=== PATIENT | male | born 1980 | race African-American/Black ===

== ENCOUNTER 2023-03-03 11:36 | Outpatient (REF) | payer MEDICAID, SELFPAY ==
[2023-03-03 13:40] LABS: Basophils Percent Auto 0.7 % (0-2); Eosinophils Absolute Auto 0.1 X10*3/uL (0.0-0.4); Eosinophils Percent Auto 1.5 % (0-4); Hematocrit 45.6 % (42.0-52.0); Hemoglobin 15.8 g/dl (14.0-18.0); Imm Gran Abs Auto 0.02 X10*3/uL (0.00-0.03); Imm Gran Pct Auto 0.3 % (0.0-0.4); Lymphocytes Absolute Auto 3.9 X10*3/uL (1.2-4.9); Lymphocytes Percent Auto 62.9 % (20-40); MANUAL DIFF FLAG SCAN; Mean Corpuscular HGB Conc 34.6 g/dl (31.0-36.0); Mean Corpuscular Hemoglobin 33.3 pg (27.0-33.0); Mean Corpuscular Volume 96.2 fL (80.0-98.0); Mean Platelet Volume 11.6 fL (9.4-12.4); Monocytes Absolute Auto 0.5 X10*3/uL (0.1-1.2); Monocytes Percent Auto 8.6 % (2-11); Neutrophils Absolute Auto 1.6 x10*3/uL (2.0-8.3); Platelet Count 256 X10*3/uL (160-400); Red Blood Count 4.74 X10*6/uL (4.60-5.80); Red Cell Distribution Width 13.1 % (11.0-16.0); SCAN SMEAR FLAG 1; White Blood Count 6.1 X10*3/uL (4.8-10.8)
[2023-03-03 14:06] LABS: SLIDE REVIEW VERIFIED
[2023-03-03 14:16] LABS: Alanine Aminotransferase 45 U/L (0-40); Albumin Level 4.3 g/dL (3.5-5.0); Alkaline Phosphatase 83 U/L (39-117); Anion Gap 13 (12-20); Aspartate Amino Transferase 49 U/L (5-37); Bilirubin Total 0.4 mg/dL (0.0-1.0); Blood Urea Nitrogen 7 mg/dL (9-16); Calcium 9.8 mg/dL (8.4-10.2); Carbon Dioxide 24 mmol/L (22-29); Chloride 107 mmol/L (96-108); Estimated Glomerular Filt Rate > 60; Glucose Random 98 mg/dL (60-115); Sodium 140 mmol/L (135-145); Total Protein 8.9 g/dL (6.5-8.0)
[2023-03-05 07:54] LABS: HIV RNA PCR Qn Copies 217 copies/mL (NOT DETECTED); HIV RNA PCR Qn Log Copies 2.34 (NOT DETECTED)
[2023-03-05 11:38] LABS: Absolute CD3 Count 2986 cells/uL (840-3060); Absolute CD4 Count 1044 cells/uL (490-1740); Absolute CD8 Count 1633 cells/uL (180-1170); Absolute Lymphocytes 3736 cells/uL (850-3900); CD4 CD8 Ratio 0.64 (0.86-5.00); Percent CD3 Cells 80 % (57-85); Percent CD4 Cells 28 % (30-61); Percent CD8 Cells 44 % (12-42)
== END 2023-03-03 11:37 | disposition home or self-care (01) ==
LOC: HO.HHCL 11:36
PROVIDERS: Visit Provider Student in an Organized Health Care Education/Training Program
DX: B20 Human immunodeficiency virus [HIV] disease (principal)
CPT/HCPCS: 36415; 80053; 85025; 86359; 86360; 87536

== ENCOUNTER 2023-08-18 12:26 | Outpatient (REF) | payer MEDICAID, SELFPAY ==
[2023-08-20 11:13] LABS: HIV RNA PCR Qn Copies <20 DETECTED copies/mL (NOT DETECTED); HIV RNA PCR Qn Log Copies <1.30 DETECTED (NOT DETECTED)
== END 2023-08-18 12:27 | disposition home or self-care (01) ==
LOC: HO.HHCL 12:26
PROVIDERS: Visit Provider Student in an Organized Health Care Education/Training Program
DX: B20 Human immunodeficiency virus [HIV] disease (principal)
CPT/HCPCS: 36415; 87536; 87900; 87901; 87906

== ENCOUNTER 2023-10-19 14:59 | Outpatient (REF) | payer MEDICAID, SELFPAY | END 2023-10-19 15:00 | disposition home or self-care (01) | LOC: HO.HHCLNP 14:59 | PROVIDERS: Visit Provider Student in an Organized Health Care Education/Training Program | DX: B20 Human immunodeficiency virus [HIV] disease (principal) | CPT/HCPCS: 88112 ==

== ENCOUNTER 2024-09-29 15:39 | Outpatient (REF) | payer MEDICAID, SELFPAY ==
[2024-09-29 16:16] LABS: Basophils Percent Auto 0.4 % (0-2); Eosinophils Percent Auto 0.4 % (0-4); Hematocrit 43.9 % (42.0-52.0); Hemoglobin 16.1 g/dl (14.0-18.0); Imm Gran Abs Auto 0.01 X10*3/uL (0.00-0.03); Imm Gran Pct Auto 0.2 % (0.0-0.4); Lymphocytes Absolute Auto 3.7 X10*3/uL (1.2-4.9); Lymphocytes Percent Auto 69.8 % (20-40); MANUAL DIFF FLAG SCAN; Mean Corpuscular HGB Conc 36.7 g/dl (31.0-36.0); Mean Corpuscular Hemoglobin 34.6 pg (27.0-33.0); Mean Corpuscular Volume 94.4 fL (80.0-98.0); Mean Platelet Volume 10.5 fL (9.4-12.4); Monocytes Absolute Auto 0.4 X10*3/uL (0.1-1.2); Monocytes Percent Auto 8.3 % (2-11); Neutrophils Absolute Auto 1.1 x10*3/uL (2.0-8.3); Neutrophils Percent Auto 20.9 % (45-73); Platelet Count 242 X10*3/uL (160-400); Red Blood Count 4.65 X10*6/uL (4.60-5.80); Red Cell Distribution Width 12.1 % (11.0-16.0); SCAN SMEAR FLAG 1; White Blood Count 5.3 X10*3/uL (4.8-10.8)
[2024-09-29 17:41] LABS: SLIDE REVIEW VERIFIED
--- OUTSIDE RECORDS SUMMARY | 2024-09-29 18:02 | XMS_ITS | Clinical Summary ---
Author Organization [facility] Address [address] [place] [address] Care Team Providers Care Tombstone Polisher Name Role Phone Unavailable Primary Care Provider Unavailabl e Source Comments PLEASE NOTE, if this patient is a minor, it may be UNLAWFUL to discuss sensitive information that is contained in these records (such as FAMILY PLANNING, MENTAL HEALTH or SUBSTANCE ABUSE) with the minor patient's parent or other person without the patient's specific authorization.[facility] Immunizations Immunization Administration Dates Next Due Moderna COVID-19 Vaccine, re d cap blue label, 12+ Primary Series 01/03/2021,12/06/2020 Social History Tobacco Use Types Packs/Day Years Used Date Smoking Tobacco: Never Assessed Social Connections Answer Date Recorded Social Connections and Isolation 0 12/06/2020 Financial Resource Strain Answer Date R ecorded Financial Resource Strain 0 2020 Stress Answer Date Recorded Stress 0 12/06/2020 Physical Activity Answer Date Recorded Physical Activity 0 12/06/2020 Food Insecurity Answer Date Recorded Food 0 12/06/2020 Transportation Needs Answer Date Record ed Transportation 0 12/06/2020 Housing Stability Answer Date Recorded Housing 0 12/06/2020 Safety and Environment Answer Date Kolby rded Safety 0 12/06/2020 Utilities Answer Date Recorded Utilities 0 12/06/2020 Employment Answer Date Recorded Employment 0 12/06/2020 Sex and Gender Information Value Date Recorded Sex Assigned at Not on file Legal Sex Male 7:58 AM PDT Gender Identity Not on file Sexual Orientation Not on file Plan of Treatment Health Maintenance Due Date Last Done Comments Anxiety Screening 1982 Diabetes Screening 1982 Hepatitis C Screening 1982 Lipid Screening 1982 Tobacco Screening 1982 HIV Screening 1997 Hypertension Screening (#1) 01/17/2000 Imm-Hepatitis B (1 of 3 - 19 + 3-dose series) 2001 Imm-DTaP/Tdap/Td (5 - Td or Tdap) 07/27/2023 07/26/2013, 1982, 1982, Additional history exists [id number] ( season) 2023 021, 12/06/2020 Alcohol and Drug Screen 04/27/2024 Depression Annual Screen 04/27/2024 Imm-Influenza (Season Ended) 2024
[2024-09-29 18:03] LABS: Alanine Aminotransferase 100 U/L (0-40); Albumin Level 4.8 g/dL (3.5-5.0); Alkaline Phosphatase 102 U/L (39-117); Anion Gap 18 (12-20); Aspartate Amino Transferase 118 U/L (5-37); Bilirubin Total 0.6 mg/dL (0.0-1.0); Blood Urea Nitrogen 12 mg/dL (9-16); Calcium 9.8 mg/dL (8.4-10.2); Carbon Dioxide 23 mmol/L (22-29); Chloride 105 mmol/L (96-108); Cholesterol 273 mg/dL (<200); Estimated Glomerular Filt Rate > 60; Glucose Random 99 mg/dL (60-115); HDL Cholesterol 42 mg/dL (>40); Potassium 3.8 mmol/L (3.3-5.1); Sodium 142 mmol/L (135-145); Total Protein 8.8 g/dL (6.5-8.0); Triglycerides 1404 mg/dL (<150)
[2024-09-29 18:13] LABS: Reflex LDLD? Yes
[2024-09-30 05:45] LABS: HBS Num1 0.18 mIU/mL (0-7.99); HBc Num1 0.06 S/CO (0.00-0.79); HBsAGNum1 0.41 S/CO (0.00-0.99); Hepatitis B Core Antibody Nonreactive (Nonreactive); Hepatitis B Surface Antigen Negative (Negative); ~HepC Num1 0.17 S/CO (0.00-0.79); ~Hepatitis B Surface Antibody NONREACTIVE (Nonreactive); ~Hepatitis C Antibody Nonreactive (Nonreactive)
[2024-09-30 06:37] LABS: HIV AB/AG Reactive (Nonreactive)
[2024-09-30 15:32] LABS: Hepatitis B Viral DNA Qn - cp NOT DETECTED Log IU/mL (NOT DETECTED); Hepatitis B Viral DNA Qn-IU/mL NOT DETECTED (NOT DETECTED)
[2024-10-02 09:12] LABS: TS Negative Control Passed; TS Panel A 0; TS Panel B 0; TS Positive Control Passed; TSpotTB Negative (Negative)
[2024-10-03 10:08] LABS: RPR Rapid Plasma Reagin NON-REACTIVE (NON-REACTIVE)
[2024-10-03 11:04] LABS: Absolute CD3 Count 2706 cells/uL (840-3060); Absolute CD4 Count 1134 cells/uL (490-1740); Absolute CD8 Count 1243 cells/uL (180-1170); Absolute Lymphocytes 3309 cells/uL (850-3900); CD4 CD8 Ratio 0.91 (0.86-5.00); Percent CD3 Cells 82 % (57-85); Percent CD4 Cells 34 % (30-61); Percent CD8 Cells 38 % (12-42)
[2024-10-03 15:44] LABS: HIV 1 Antibody POSITIVE (NEGATIVE); HIV 2 Antibody NEGATIVE (NEGATIVE)
[2024-10-04 01:08] LABS: LDL Cholesterol Direct 73 mg/dL (<100)
[2024-10-06 16:48] LABS: FIB-ALT 67 U/L (9-46); FIB-Alpha-2-Macroglobulin 205 mg/dL (106-279); FIB-Apolipoprotein A1 209 mg/dL (94-176); FIB-GGT 519 U/L (3-95); FIB-Haptoglobin 208 mg/dL (43-212); FIB-Total Bilirubin 0.5 mg/dL (0.2-1.2); Liver Fibrosis Score 0.24; Liver Fibrosis Stage F0-F1; Nec Inflam Act Grade A1-A2; Nec Inflam Act Score 0.38
== END 2024-09-29 15:40 | disposition home or self-care (01) ==
LOC: HO.HHCL 15:39
PROVIDERS: Visit Provider Student in an Organized Health Care Education/Training Program
DX: Z21 Asymptomatic human immunodeficiency virus [HIV] infection status (principal)
CPT/HCPCS: 36415; 80053; 80061; 81596; 83721; 85025; 86359; 86360; 86481; 86592; 86701; 86702; 86704; 86706; 86803; 87340; 87389; 87517

== ENCOUNTER 2025-01-11 12:17 | Outpatient (REF) | payer MEDICAID, SELFPAY ==
--- NOTE | ~2025-01-11 | XR_ITS ---
EXAMINATION: XR FOOT, LEFT CLINICAL INFORMATION: 3 DAYS OF PAIN OVER 3/4 METATARSAL AFTER RUNNING COMPARISON: None available. TECHNIQUE: AP, lateral, and oblique views of the left foot. FINDINGS: No abnormal lucency, sclerosis, or periosteal new bone formation is visible. Small teardrop-shaped ossification is present in the soft tissues medial to the first MTP joint. There are small MTP joint marginal osteophytes. 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 No visible fracture or stress response. Electronically signed by: Alpesh Sy MD 01/11/2025 12:35 PM EDT
--- OUTSIDE RECORDS SUMMARY | 2025-01-11 15:45 | XMS_ITS | Clinical Summary ---
Author Organization [facility] Address [address] [phone] Phone Care Team Providers Care Academic Affairs Coordinator Name Role Phone Pcp, Not Required Primary Care Provider Unavaila ble Social History Tobacco Use Types Packs/Day Years Used Date Smoking Tobacco: Never Assessed Education Answer Date Recorded Are you interested in more education? Not on ami e 08/22/2022 Are you concerned about learning? Not on file 08/22/2022 No 08/22/2022 No 08/22/2022 Digital Access Answer Date Recorded No 09/23/2022 No 09/23/2022 Reliable internet access at home? Not on file 09/23/2022 Device with a working camera? Not on file Sex and Gender Information Value Date Recorded Sex Assigned at Not on file Legal Sex Male 3:28 PM EDT Gender Identity Not on file Sexual Orientation Not on file Plan of Treatment Health Maintenance Due Date Last Done Comments LIPID PANEL 1982 DEPRESSION SCREENING 1994 SMOKING Hx and SMOKELESS TOBACCO SCREENING 1995 HEPATITIS C SCREENING 01/17/2000 HIV ONE-TIME SCREENING (18-6 5 YEARS) 01/17/2000 Adult Td,Tdap Booster 07/27/2023 07/26/2013 INFLUENZA VACCINE (#1) 2024 COVID-19 VACCINE (2024-2 6 season) 2024 01/03/2021, 12/06/2020 MENINGOCOCCAL VACCINES (ACWY) Aged Out 09/07/2017 No longer eligible based on patient's age to complete this topic PNEUMOCOCCAL VACCINES (0-49 years) Aged Out 09/07/2017 No longer eligible b ased on patient's age to complete this topic HEPATITIS A VACCINES Aged Out No long er eligible based on patient's age to complete this topic HIB VACCINES Aged Out No longer eligi ble based on patient's age to complete this topic MENINGOCOCCAL VACCINES (B) Aged Out N o longer eligible based on patient's age to complete this topic Medical Devices Not on file [facility]PO [facility] A[employer]NA HMO POS EPO AETNA O POS EPO AET[employer] O POS EPO A[employer] HMO POS EPO A[employer] HMO POS EPO A[employer] HMO POS EPO Care Teams Academic Affairs Coordinator Relationship Specialty Start Date End Date Pcp, Not Required [address] [place] [id number] PCP - General 08/16/19 Additional Source Comments The information contained in this document represents components of the legal health record. It is not the complete legal health record.[facility]
--- OUTSIDE RECORDS SUMMARY | 2025-01-11 15:45 | XMS_ITS | Clinical Summary ---
Author Organization [facility] Address [address] [place] [address] Care Team Providers Care Integration Analyst Name Role Phone Unavailable Primary Care Provider [...] 3 - 19 + 3-dose series) 2001 Imm-HPV (1 - 3-dose SCDM series) 2009 Imm-DTaP/Tdap/Td (5 - Td or Tdap) 07/27/2023 07/26/2013, 1982, 1982, Additional history exists Alcohol and Drug Screen 04/27/2024 Depression Annual Screen 04/27/2024 [id number] ( season) 2024 021, 12/06/2020 Imm-Influenza (#1) 2024
== END 2025-01-11 12:18 | disposition home or self-care (01) ==
LOC: HO.HMGCX 12:17
PROVIDERS: PCP Student in an Organized Health Care Education/Training Program; Visit Provider Family Medicine
DX: M79.672 Pain in left foot (principal)
CPT/HCPCS: 73630

== ENCOUNTER → 2025-01-11 12:24 | Outpatient (BNV) | payer MEDICAID, SELFPAY | PROVIDERS: PCP Student in an Organized Health Care Education/Training Program; Visit Provider Radiology Diagnostic Radiology | DX: M20.12 Hallux valgus (acquired), left foot (principal) | CPT/HCPCS: 73630 ==

== ENCOUNTER 2025-01-24 15:03 | Outpatient (REF) | payer MEDICAID, SELFPAY ==
--- NOTE | ~2025-01-24 | XR_ITS ---
EXAMINATION: XR ANKLE, right CLINICAL INFORMATION: right ankle pain COMPARISON: None available. TECHNIQUE: AP, lateral, and mortise views lower extremity joint, ankle. FINDINGS: Ankle mortise is congruent. There is no widening of the syndesmosis. Talar dome is intact. There are no calcaneal enthesophyte(s). XR/XR ankle RT min 3V IMPRESSION: Unremarkable ankle x-ray. Electronically signed by: Alpesh Sy MD 01/24/2025 03:36 PM EDT
--- OUTSIDE RECORDS SUMMARY | 2025-01-24 16:27 | XMS_ITS | Clinical Summary ---
Author Organization [facility] Address [address] [place] [address] Care Team Providers Care Wheelage Clerk Name Role Phone Unavailable Primary Care Provider [...] Drug Screen 04/27/2024 Depression Annual Screen 04/27/2024 [id number] ( season) 2024 021, 12/06/2020 Imm-Influenza (#1) 2024
--- OUTSIDE RECORDS SUMMARY | 2025-01-24 16:27 | XMS_ITS | Clinical Summary ---
Author Organization [facility] Address [address] [phone] Phone Care Team Providers Care Acoustical Tile Drill Press Operator Name Role Phone Pcp, Not Required Primary [...] topic Medical Devices Not on file Insurance [facility] [employer] POS EPO A[employer] HMO POS EPO AET[employer] O POS EPO AETNA O POS EPO A[employer] HMO POS EPO A[employer] HMO POS EPO A[employer] HMO POS EPO Care Teams Acoustical Tile Drill Press Operator Relationship Specialty Start Date End Date Pcp, Not Required [address] [place] [id number] PCP - General 08/16/19 Additional Source Comments The information contained in this document represents components of the legal health record. It is not the complete legal health record.[facility]
[2025-01-24 16:30] LABS: MANUAL DIFF FLAG NO
[2025-01-24 16:40] LABS: Hematocrit 41.4 % (42.0-52.0); Hemoglobin 14.7 g/dl (14.0-18.0); Imm Gran Abs Auto 0.03 X10*3/uL (0.00-0.03); Imm Gran Pct Auto 0.3 % (0.0-0.4); Lymphocytes Absolute Auto 4.2 X10*3/uL (1.2-4.9); Mean Corpuscular HGB Conc 35.5 g/dl (31.0-36.0); Mean Corpuscular Hemoglobin 34.2 pg (27.0-33.0); Mean Corpuscular Volume 96.3 fL (80.0-98.0); NRBC Abs Auto 0.000 X10*3/uL (0.0-0.012); NRBC Pct Auto 0.0 /100WBC (0.0-0.2); Platelet Count 252 X10*3/uL (160-400); Red Blood Count 4.30 X10*6/uL (4.60-5.80); White Blood Count 9.4 X10*3/uL (4.8-10.8)
[2025-01-24 16:48] LABS: Cholesterol 291 mg/dL (<200); HDL Cholesterol 43 mg/dL (>40); Triglycerides 822 mg/dL (<150); Uric Acid 10.2 mg/dL (3.4-7.0)
[2025-01-26 07:48] LABS: HIV RNA PCR Qn Copies 404 copies/mL (NOT DETECTED); HIV RNA PCR Qn Log Copies 2.61 (NOT DETECTED)
== END 2025-01-24 15:04 | disposition home or self-care (01) ==
LOC: HO.HHCX 15:03
PROVIDERS: Student in an Organized Health Care Education/Training Program; Visit Provider Internal Medicine
DX: M25.571 Pain in right ankle and joints of right foot (principal); Z21 Asymptomatic human immunodeficiency virus [HIV] infection status; E78.5 Hyperlipidemia, unspecified
CPT/HCPCS: 36415; 73610; 80061; 84550; 85025; 86140; 87536

== ENCOUNTER → 2025-01-24 15:03 | Outpatient (BNV) | payer MEDICAID, SELFPAY | PROVIDERS: Visit Provider Radiology Diagnostic Radiology | DX: M25.571 Pain in right ankle and joints of right foot (principal) | CPT/HCPCS: 73610 ==

== ENCOUNTER 2025-01-24 15:23 | Outpatient (REF) | payer MEDICAID, SELFPAY | END 2025-01-24 15:24 | disposition home or self-care (01) | LOC: HO.HHCL 15:23 | PROVIDERS: PCP Student in an Organized Health Care Education/Training Program; Visit Provider Student in an Organized Health Care Education/Training Program | DX: Z13.89 Encounter for screening for other disorder (principal) ==

== ENCOUNTER 2025-04-03 09:12 | Outpatient (REF) | payer MEDICAID, SELFPAY ==
[2025-04-03 11:50] LABS: Hematocrit 45.9 % (42.0-52.0); Hemoglobin 15.4 g/dl (14.0-18.0); Imm Gran Abs Auto 0.01 X10*3/uL (0.00-0.03); Imm Gran Pct Auto 0.2 % (0.0-0.4); Lymphocytes Absolute Auto 4.1 X10*3/uL (1.2-4.9); MANUAL DIFF FLAG SCAN; Mean Corpuscular HGB Conc 33.6 g/dl (31.0-36.0); Mean Corpuscular Hemoglobin 32.3 pg (27.0-33.0); Mean Corpuscular Volume 96.2 fL (80.0-98.0); NRBC Abs Auto 0.000 X10*3/uL (0.0-0.012); NRBC Pct Auto 0.0 /100WBC (0.0-0.2); Platelet Count 296 X10*3/uL (160-400); Red Blood Count 4.77 X10*6/uL (4.60-5.80); SCAN SMEAR FLAG 1; White Blood Count 6.0 X10*3/uL (4.8-10.8)
[2025-04-03 12:10] LABS: Alanine Aminotransferase 41 U/L (0-40); Albumin Level 4.6 g/dL (3.5-5.0); Alkaline Phosphatase 107 U/L (39-117); Anion Gap 15 (12-20); Aspartate Amino Transferase 52 U/L (5-37); Blood Urea Nitrogen 9 mg/dL (9-16); Calcium 9.9 mg/dL (8.4-10.2); Carbon Dioxide 26 mmol/L (22-29); Chloride 105 mmol/L (96-108); Cholesterol 243 mg/dL (<200); Estimated Glomerular Filt Rate > 60; HDL Cholesterol 31 mg/dL (>40); Potassium 4.0 mmol/L (3.3-5.1); Sodium 142 mmol/L (135-145); Total Protein 8.3 g/dL (6.5-8.0); Triglycerides 419 mg/dL (<150); Uric Acid 6.8 mg/dL (3.4-7.0)
[2025-04-03 13:01] LABS: Reflex LDLD? Yes
[2025-04-03 13:42] LABS: Appearance Urine Turbid; Glucose Urine UA Negative (Negative); PH 6.0 (5.0-9.0); Specific Gravity - Urine >= 1.030 (1.005-1.025)
[2025-04-03 23:38] LABS: CT PCR Urine NOT DETECTED (Not Detect.); NG PCR Urine NOT DETECTED (Not Detect.)
[2025-04-04 04:21] LABS: HBS Num1 0.00 mIU/mL (0-7.99); HBc Num1 0.11 S/CO (0.00-0.79); HBsAGNum1 0.42 S/CO (0.00-0.99); Hepatitis B Surface Antigen Negative (Negative); ~Hepatitis B Surface Antibody NONREACTIVE (Nonreactive)
[2025-04-04 06:43] LABS: Rubeola IgG (Measles) >300.00 AU/mL
[2025-04-05 21:24] LABS: HIV RNA PCR Qn Copies 602 copies/mL (NOT DETECTED); HIV RNA PCR Qn Log Copies 2.78 (NOT DETECTED)
[2025-04-06 19:44] LABS: Absolute CD3 Count 3168 cells/uL (840-3060); Absolute CD8 Count 1371 cells/uL (180-1170); Percent CD3 Cells 81 % (57-85); Percent CD8 Cells 35 % (12-42)
== END 2025-04-03 09:13 | disposition home or self-care (01) ==
LOC: HO.HHCL 09:12
PROVIDERS: PCP Student in an Organized Health Care Education/Training Program; Visit Provider Student in an Organized Health Care Education/Training Program
DX: Z20.2 Contact with and (suspected) exposure to infections with a predominantly sexual mode of transmission (principal); Z11.59 Encounter for screening for other viral diseases; Z01.84 Encounter for antibody response examination; Z21 Asymptomatic human immunodeficiency virus [HIV] infection status; M10.9 Gout, unspecified
CPT/HCPCS: 36415; 80053; 80061; 81001; 83721; 84550; 85025; 86140; 86359; 86360; 86704; 86706; 86735; 86762; 86765; 86787; 87340; 87491; 87536; 87591

== ENCOUNTER 2025-04-14 08:36 | Outpatient (REF) | payer MEDICAID, SELFPAY ==
--- NOTE | ~2025-04-14 | US_ITS ---
CLINICAL HISTORY: pt w transaminitis US abdomen complete with duplex and color Doppler Comparison: None Findings: The visualized pancreas, aorta, and inferior vena cava are unremarkable. Liver is mildly enlargedand diffusely echogenic. Right lobe 19.6 cm length. No focal hepatic masses. Common duct 2.0 mm diameter. Physiologic distention of the gallbladder. No gallstones or sludge. No gallbladder wall thickening. No pericholecystic fluid. No sonographic Damico sign. Main portal vein antegrade. Right kidney normal size, 11.9 cm in length. Normal cortical width and echotexture. No solid or cystic renal masses. No nephrolithiasis. No hydronephrosis. Left kidney normal, 12.2 cm in length. Normal cortical width and echotexture. No solid or cystic renal masses. No nephrolithiasis. No hydronephrosis. Spleen measures 10.0 cm. No splenic masses. No ascites. No lymphadenopathy. Impression: 1. Mild hepatomegaly with increased hepatic echotexture reflecting hepatic steatosis or diffuse hepatocellular disease. This document has been electronically signed by: Konstantin Shah MD on 04/14/2025 10:58:13
== END 2025-04-14 08:37 | disposition home or self-care (01) ==
LOC: HO.US 08:36
PROVIDERS: Visit Provider Student in an Organized Health Care Education/Training Program
DX: R74.01 Elevation of levels of liver transaminase levels (principal)
CPT/HCPCS: 76700

== ENCOUNTER → 2025-04-14 08:42 | Outpatient (BNV) | payer MEDICAID, SELFPAY | PROVIDERS: Visit Provider Radiology Diagnostic Radiology | DX: R16.0 Hepatomegaly, not elsewhere classified (principal) | CPT/HCPCS: 76700 ==